=== PATIENT | male | born 1960 | race Caucasian/White ===

== ENCOUNTER → 2019-06-19 | Outpatient (REF) | payer OTHER ==
[2019-06-19 16:45] LABS: PERCENT SATURATION 6.3 % (19.7-50.0)
== END ==
LOC: M LAB REF 15:53
PROVIDERS: ATTEND Internal Medicine
DX: D64.9 Anemia, unspecified (principal)

== ENCOUNTER → 2019-07-08 | Outpatient (REF) | payer OTHER | LOC: M LAB REF 11:46 | PROVIDERS: ATTEND Internal Medicine | DX: D64.9 Anemia, unspecified (principal) ==

== ENCOUNTER → 2019-08-11 | Outpatient (REF) | payer OTHER ==
[2019-08-11 17:41] LABS: PERCENT SATURATION 19.3 % (19.7-50.0)
== END ==
LOC: M LAB REF 16:43
PROVIDERS: ATTEND Internal Medicine
DX: D50.9 Iron deficiency anemia, unspecified (principal)

== ENCOUNTER → 2019-08-27 | Outpatient (REF) | payer OTHER | LOC: M LABDRWAD 12:29 | PROVIDERS: ATTEND Internal Medicine Gastroenterology | DX: D50.9 Iron deficiency anemia, unspecified (principal) ==

== ENCOUNTER → 2019-09-09 | Outpatient (REF) | payer OTHER ==
[2019-09-09 13:38] LABS: PERCENT SATURATION 31.7 % (19.7-50.0)
== END ==
LOC: M LAB REF 12:34
PROVIDERS: ATTEND Internal Medicine
DX: D50.9 Iron deficiency anemia, unspecified (principal)

== ENCOUNTER → 2019-10-03 | Outpatient (CLI) | payer OTHER ==
[~2019-10-03] MED LIST: ASPI81CH17 PO; DOXY1CAP60 PO; FERR325T81 PO; GEMF600T5 PO; LISI-538 PO; MULT-90 PO; OMEP-221 PO; PRAV80TA2 PO
== END ==
LOC: M LABSMTC 08:12
PROVIDERS: ATTEND Anesthesiology
DX: Z01.818 Encounter for other preprocedural examination (principal); Z11.59 Encounter for screening for other viral diseases

== ENCOUNTER 2019-10-06 07:13 | Day surgery (SDC) | payer BC, OTHER ==
[~2019-10-06] VITALS: Ht 167.6 cm; Wt 80.7 kg
[~2019-10-06 07:13] MED LIST changes: +NS 1,000 ML IV ONE
[2019-10-06] MEDS ORDERED: fentaNYL 100 MCG/2 ML INJECTION (J3010) As Ordered ONE (09:38)
[2019-10-06] MEDS ORDERED: LIDOCAINE 2% 100MG/5ML SDV (FOR ANES.) As Ordered ONE (09:38)
[2019-10-06] MEDS ORDERED: propofoL 200 MG/20 ML VIAL As Ordered ONE ×2 (09:38→10:12)
--- NOTE | 2019-10-06 10:04 | ROOR ---
Patient Name: Romulo Harrington Procedure Date: 10/06/2019 9:29 AM Date of : 1960 Age: 59 Room: [facility] Gender: Male Note Status: Finalized Procedure: Upper GI endoscopy Indications: Iron deficiency anemia Providers: Garcia QIU MD Referring MD: JANET CLIFFORD JR, MD Requesting Provider: Medicines: Monitored Anesthesia Care Complications: No immediate complications. Procedure: Pre-Anesthesia Assessment: - The heart rate, respiratory rate, oxygen saturations, blood pressure, adequacy of pulmonary ventilation, and response to care were monitored throughout the procedure. The Endoscope was introduced through the mouth, and advanced to the third part of duodenum. The upper GI endoscopy was accomplished without difficulty. The patient tolerated the procedure well. Findings: A single 20 mm pedunculated polyp was found in the third portion of the duodenum. The polyp was removed with a hot snare. Resection and retrieval were complete. To prevent bleeding after the polypectomy, three hemostatic clips were successfully placed. There was no bleeding at the end of the procedure. Small Hiatal Hernia. The exam was otherwise without abnormality. Impression: - A single stalked 2 cm duodenal polyp. Resected and retrieved. Clips were placed. - Small Hiatal Hernia. - The examination was otherwise normal. Recommendation: - Telephone endoscopist for pathology results in 2 weeks. - Observe patient's clinical course. Garcia Qiu MD Garcia QIU MD 10/06/2019 10:04:23 AM Electronically signed by Garcia QIU MD Number of Addenda: 0 Note Initiated On: 10/06/2019 9:29 AM Estimated Blood Loss: Estimated blood loss: none.
--- NOTE | 2019-10-06 10:22 | ROOR ---
Patient Name: Romulo Harrington Procedure Date: 10/06/2019 9:28 AM Date of : 1960 Age: 59 Room: [facility] Gender: Male Note Status: Finalized Procedure: Colonoscopy Indications: Iron deficiency anemia Providers: Garcia QIU MD Referring MD: JANET CLIFFORD JR, MD Requesting Provider: Medicines: Monitored Anesthesia Care Complications: No immediate complications. Procedure: Pre-Anesthesia Assessment: - The heart rate, respiratory rate, oxygen saturations, blood pressure, adequacy of pulmonary ventilation, and response to care were monitored throughout the procedure. The Colonoscope was introduced through the anus and advanced to 10 cm into the ileum. The colonoscopy was performed without difficulty. The patient tolerated the procedure well. The quality of the bowel preparation was adequate. Findings: The perianal and digital rectal examinations were normal. Mild sigmoid diverticulosis and small internal hemorrhoids. The colon otherwise appeared normal. The terminal ileum is noted for some lymphoid hyperplasia, but is otherwise normal. Impression: - Minimal sigmoid diverticulosis and small internal hemorrhoids. - The entire examined colon is otherwise normal. - The examined portion of the ileum was normal. - No specimens collected. Recommendation: - Perform a computed tomographic (CT scan) enterography at appointment to be scheduled. - My office will call you in the next few days to set you up for this study/exam. Garcia Qiu MD Garcia QIU MD 10/06/2019 10:22:24 AM Electronically signed by Garcia QIU MD Number of Addenda: 0 Note Initiated On: 10/06/2019 9:28 AM Estimated Blood Loss: Estimated blood loss: none.
[2019-10-06 10:50] VITALS: BP 150/98
== END 2019-10-06 11:00 | disposition home or self-care (01) ==
LOC: M OPP 07:13
PROVIDERS: ATTEND Internal Medicine Gastroenterology
DX: K31.7 Polyp of stomach and duodenum (principal); D50.9 Iron deficiency anemia, unspecified; K57.30 Diverticulosis of large intestine without perforation or abscess without bleeding; K64.9 Unspecified hemorrhoids; K44.9 Diaphragmatic hernia without obstruction or gangrene; K21.9 Gastro-esophageal reflux disease without esophagitis; Z79.82 Long term (current) use of aspirin; Z79.899 Other long term (current) drug therapy
CPT/HCPCS: 43251; 45378; 88305; J3010

== ENCOUNTER → 2019-10-26 | Outpatient (CLI) | payer BC, OTHER ==
[~2019-10-26] MED LIST changes: +GLUCAGON INJ 1MG VIAL As Ordered ONE; +ISOVUE-370 76% 100ML VIAL As Ordered ONE; -NS 1,000 ML IV ONE; +VoLumen 0.1% SUSPENSION 450ML BOTTLE As Ordered ONE
--- NOTE | 2019-10-26 10:29 | REP ---
Clinical: Iron-deficiency anemia. Technique: Axial contrast enhanced images using oral low-density contrast material and 100 ml Isovue 370 intravenous contrast material obtained in arterial and portal venous phases of enhancement along with coronal and sagittal re-formations. Examination performed using CT enterography technique. Findings: Evaluation of the enteric system including stomach, small, and large bowel is essentially unremarkable and without evidence for obstruction or acute/chronic inflammatory process. Few scattered colonic diverticula noted without acute diverticulitis. Normal terminal ileum, cecum and appendix are identified in the right lower quadrant. Liver, spleen, pancreas, gallbladder, bilateral adrenal glands and left kidney are normal. Right kidney includes 6 cm simple cyst. Pelvis demonstrates normal bladder and age appropriate prostate/seminal vesicles. Abdominal aorta and branch vessels are normal. No ascites. No free air. No adenopathy. Surrounding musculoskeletal structures demonstrate age-related changes without acute abnormality. Lung bases are clear. Visualized heart and pericardium normal. Impression: 1. Few scattered colonic diverticula noted. The enteric system is otherwise unremarkable. 2. 6 cm simple right renal cyst. Electronically Signed by Moe Patel MD 10/26/2019 10:21 A
== END ==
LOC: M RAD 08:28
PROVIDERS: ATTEND Internal Medicine Gastroenterology
DX: D50.9 Iron deficiency anemia, unspecified (principal); K31.7 Polyp of stomach and duodenum; N28.1 Cyst of kidney, acquired; K57.90 Diverticulosis of intestine, part unspecified, without perforation or abscess without bleeding
CPT/HCPCS: 74177; J1610; Q9967

== ENCOUNTER → 2020-02-23 | Outpatient (REF) | payer BC, OTHER ==
[~2020-02-23] MED LIST changes: -GLUCAGON INJ 1MG VIAL As Ordered ONE; -ISOVUE-370 76% 100ML VIAL As Ordered ONE; -VoLumen 0.1% SUSPENSION 450ML BOTTLE As Ordered ONE
[2020-02-23 17:12] LABS: BASO % 0.6 % (0.0-1.0); EOS # 0.2 10^3/uL (0.0-0.5); EOS % 2.2 % (0.0-3.0); HEMOGLOBIN 15.5 g/dl (13.5-17.5); LYMPH # 1.7 10^3/uL (1.5-5.0); MEAN CORPUSCULAR HEMOGLOBIN 29.6 pg (27.0-33.0); MEAN CORPUSCULAR HGB CONC 33.7 g/dl (32.0-36.5); MONO # 0.6 10^3/uL (0.0-0.8); MONO % 8.3 % (0.0-5.0); NEUTROPHILS # 4.3 10^3/uL (1.5-8.5); NEUTROPHILS % 63.3 % (36.0-66.0); PLATELET COUNT, AUTOMATED 333 10^3/uL (150-450); RED BLOOD COUNT 5.23 10^6/uL (4.30-6.10); WHITE BLOOD COUNT 6.8 10^3/uL (4.0-10.0)
[2020-02-23 17:44] LABS: ERYTHROCYTE SEDIMENTATION RATE 4 mm/hr (0-20)
== END ==
LOC: M LABDRWAD 16:05
PROVIDERS: ATTEND Physician Assistant
DX: R59.0 Localized enlarged lymph nodes (principal)

== ENCOUNTER → 2020-06-20 | Outpatient (REF) | payer OTHER ==
[~2020-06-20] MED LIST changes: +ASPI-281 PO; -ASPI81CH17 PO; -LISI-538 PO; +LISI20TA33 PO
[2020-06-20 13:55] LABS: PERCENT SATURATION 23.1 % (19.7-50.0)
== END ==
LOC: M LAB REF 11:20
PROVIDERS: ATTEND Internal Medicine
DX: D50.9 Iron deficiency anemia, unspecified (principal)

== ENCOUNTER → 2021-01-03 | Outpatient (CLI) | payer BC, OTHER ==
--- NOTE | 2021-01-03 09:48 | REP ---
INDICATION: FATTY LIVER COMPARISON: None. TECHNIQUE: Real time sadler scale ultrasound examination using curved array transducer. FINDINGS: Liver demonstrates increased echotexture suggesting fatty infiltration without focal hepatic lesion and no evidence for hepatomegaly. Liver measures approximately 15 cm in craniocaudal length. Pancreas is incompletely evaluated due to interposed bowel gas. The gallbladder is normal and without gallstones, wall thickening, or pericholecystic fluid. No biliary ductal dilatation is appreciated and the common bile duct measures 3.9 mm diameter. Right kidney is normal in reniform shape without hydronephrosis and measures 10.4 x 6.0 x 5.2 cm and includes 5.9 mm simple midpole cyst. No ascites in the visualized right upper quadrant. IMPRESSION: 1. Hepatosteatosis. 2. 5.9 cm simple right renal cyst. <Electronically signed by Moe Patel > 01/03/21 0935
== END ==
LOC: M RAD 09:02
PROVIDERS: ATTEND Internal Medicine
DX: K76.0 Fatty (change of) liver, not elsewhere classified (principal); N28.1 Cyst of kidney, acquired

== ENCOUNTER → 2021-12-29 | Outpatient (REF) | payer OTHER, BC ==
[~2021-12-29] MED LIST changes: -ASPI-281 PO; +ASPI-310 PO; -DOXY1CAP60 PO; +DOXY50CA51 PO; -OMEP-221 PO; +OMEP40CA5 PO
[2021-12-29 13:19] LABS: PERCENT SATURATION 20.6 % (19.7-50.0)
[2022-01-01 13:49] LABS: HEPATITIS B CORE ANTIBODY IGM NEGATIVE (NEGATIVE); HEPATITIS B SURFACE ANTIGEN NEGATIVE (NEGATIVE); HEPATITIS C VIRUS ABY INDEX 0.1 INDEX (<0.8)
[2022-01-03 12:07] LABS: ANTINUCLEAR ANTIBODIES DIRECT Negative (Negative)
== END ==
LOC: M LAB REF 12:10
PROVIDERS: ATTEND Internal Medicine
DX: D50.9 Iron deficiency anemia, unspecified (principal)

== ENCOUNTER 2022-04-21 12:05 | Emergency (ER) | payer BC, OTHER ==
[~2022-04-21] VITALS: Ht 167.6 cm; Wt 85.1 kg
[2022-04-21] MEDS ORDERED: LABETALOL 100MG/20ML VIAL As Ordered ONE (12:47)
[2022-04-21] MEDS ORDERED: LABETALOL 100MG/20ML VIAL IV STA ×3 (12:47→13:49)
[2022-04-21] MEDS ORDERED: ISOVUE-370 76% 100ML VIAL As Ordered ONE (12:54)
[2022-04-21 13:01] LABS: BASO % 0.6 % (0.0-1.0); EOS # 0.2 10^3/uL (0.0-0.5); EOS % 3.3 % (0.0-3.0); HEMATOCRIT 44.9 % (42.0-52.0); HEMOGLOBIN 15.4 g/dl (13.5-17.5); LYMPH # 2.4 10^3/uL (1.5-5.0); LYMPH % 33.9 % (24.0-44.0); MEAN CORPUSCULAR HEMOGLOBIN 29.1 pg (27.0-33.0); MEAN CORPUSCULAR HGB CONC 34.3 g/dl (32.0-36.5); MEAN CORPUSCULAR VOLUME 84.9 fl (80.0-96.0); MONO # 0.5 10^3/uL (0.0-0.8); MONO % 7.2 % (2.0-8.0); NEUTROPHILS # 3.8 10^3/uL (1.5-8.5); NEUTROPHILS % 54.4 % (36.0-66.0); PLATELET COUNT, AUTOMATED 285 10^3/uL (150-450); RED BLOOD COUNT 5.29 10^6/uL (4.30-6.10); WHITE BLOOD COUNT 6.9 10^3/uL (4.0-10.0)
[2022-04-21 13:17] LABS: INR 0.94; PROTHROMBIN TIME 12.8 SECONDS (12.5-14.5)
[2022-04-21 13:18] LABS: PARTIAL THROMBOPLASTIN TIME 34.2 SECONDS (24.8-34.2)
[2022-04-21 13:26] LABS: BLOOD UREA NITROGEN 15 MG/DL (9-23); CALCIUM LEVEL 9.4 MG/DL (8.5-10.1); CARBON DIOXIDE LEVEL 28 MMOL/L (20-31); CHLORIDE LEVEL 105 MMOL/L (98-107); CK-MB VALUE MASS 1.2 NG/ML (<3.6); CREATININE FOR GFR 0.95 MG/DL (0.70-1.30); GLOMERULAR FILTRATION RATE > 60.0 (>56); GLUCOSE, FASTING 108 MG/DL (60-100); POTASSIUM SERUM 3.8 MMOL/L (3.5-5.1); SODIUM LEVEL 140 MMOL/L (136-145)
[2022-04-21] MEDS ORDERED: CLOPIDOGREL 300 MG TAB (PLAVIX) PO STA (13:42)
[2022-04-21] MEDS ORDERED: ASPIRIN 325 MG TAB PO ONE (13:45)
[2022-04-21 13:48] LABS: CPK CREATINE PHOSPHOKINASE 189 U/L (46-171); MB/CK RELATIVE INDEX 0.63 (< OR =4)
[2022-04-21] MEDS ORDERED: LABETALOL 100MG TAB PO ONE (13:50)
[2022-04-21 14:45] VITALS: BP 167/100
[2022-04-21 14:49] LABS: RSV AMPLIFICATION NEGATIVE (NEGATIVE)
== END 2022-04-21 15:10 | disposition short-term general hospital (02) ==
LOC: M ED 12:05
DX: H53.451 Other localized visual field defect, right eye (principal); I16.0 Hypertensive urgency; R94.31 Abnormal electrocardiogram [ECG] [EKG]; K21.9 Gastro-esophageal reflux disease without esophagitis; I10 Essential (primary) hypertension; E78.5 Hyperlipidemia, unspecified; Z87.891 Personal history of nicotine dependence; Z79.82 Long term (current) use of aspirin; Z79.811 Long term (current) use of aromatase inhibitors; Z79.899 Other long term (current) drug therapy

== ENCOUNTER → 2023-09-12 | Outpatient (REF) | payer BC, OTHER ==
[~2023-09-12] MED LIST changes: +DOXY50CA35 PO; -DOXY50CA51 PO
== END ==
LOC: M SFHCDERM 15:08
PROVIDERS: ATTEND Physician Assistant
DX: L57.0 Actinic keratosis (principal)

== ENCOUNTER → 2024-01-16 | Outpatient (CLI) | payer BC, OTHER | LOC: M ADAMS 11:34 | PROVIDERS: ATTEND Physician Assistant Medical | DX: M25.562 Pain in left knee (principal) ==